=== PATIENT | male | born 1975 | race Caucasian/White ===

== ENCOUNTER 2021-06-04 13:13 | Emergency (ER) | payer MEDICAID ==
[~2021-06-04] VITALS: Ht 167.6 cm; Wt 72.7 kg
[2021-06-04 13:25] VITALS: BP 109/77
[2021-06-04] MEDS ORDERED: BENZ-16 PO (13:55)
[2021-06-04] MEDS ORDERED: ALBU8HFA PO (13:55)
== END 2021-06-04 15:21 | disposition home or self-care (01) ==
LOC: ER 13:14
DX: R09.89 Other specified symptoms and signs involving the circulatory and respiratory systems (principal); M79.10 Myalgia, unspecified site; R50.9 Fever, unspecified; Z20.822 Contact with and (suspected) exposure to COVID-19
CPT/HCPCS: 36415; 99283; U0003; U0005